=== PATIENT | female | born 2000 | race Caucasian/White ===

== ENCOUNTER 2025-09-25 04:14 | Emergency (ER) | payer OTHER ==
[~2025-09-25] VITALS: Ht 165.1 cm; Wt 59.1 kg
[2025-09-25 04:21] VITALS: TEMP 98.1
[2025-09-25] MEDS ORDERED: KETOROLAC TROMETHAMINE 30 MG/ML VIAL IVP ONE (04:30)
[2025-09-25] MEDS ORDERED: SODIUM CHLORIDE 0.9% 100 ML ONE (04:48)
[2025-09-25] MEDS ORDERED: IOHEXOL 300 MG/ML 100 ML VIAL ONE (04:48)
[2025-09-25 04:59] LABS: PLATELET COUNT (AUTO) 364 K/uL (150-450); RED BLOOD CELL COUNT(AUTO) 3.86 MIL/uL (4.00-5.20); RED CELL DISTRIBUTION WIDTH 12.9 % (11.5-14.5); WHITE BLOOD COUNT (AUTO) 7.0 K/uL (4.5-11.0)
[2025-09-25] MEDS: ONDANSETRON HCL 4 MG/2 ML VIAL IVP ONE (05:00)
[2025-09-25] MEDS: MAG HYDROX/ALUMINUM HYD/SIMETH 30 ML SUSPENSION UDCUP PO ONE (05:00)
[2025-09-25] MEDS: KETOROLAC TROMETHAMINE 15 MG/ML VIAL IVP ONE (05:00)
[2025-09-25] MEDS: FAMOTIDINE 20 MG/2 ML VIAL IVP ONE (05:00)
[2025-09-25] MEDS: SODIUM CHLORIDE 0.9% 1,000 ML IV ONE (05:01)
[2025-09-25 05:02] LABS: CALCIUM, TOTAL 9.3 mg/dL (8.8-10.5); CREATININE 0.74 mg/dL (0.60-1.30); GLOMERULAR FILTR. RATE CALC > 60 mL/min (>60); GLUCOSE,RANDOM 107 mg/dL (70-110); SODIUM SERUM 136 mmol/L (136-145); UREA NITROGEN, BLOOD 11 mg/dL (7-18)
[2025-09-25 05:13] LABS: ASPARTATE AMINOTRANSFERASE 21 U/L (15-37); HCG,QUANTITATIVE < 1 mIU/mL (0-6); TOTAL PROTEIN, SERUM 7.9 g/dL (6.4-8.2)
[2025-09-25 08:53] VITALS: BP 110/61; PULSE 56; RESP 20; O2SAT 100
== END 2025-09-25 09:23 | disposition home or self-care (01) ==
LOC: EMS 04:36
DX: R10.33 Periumbilical pain (principal); N89.8 Other specified noninflammatory disorders of vagina
CPT/HCPCS: 99285; 74177; 96374; 96375; 80048; 80076; 83690; 84702; 85025; 36415; J1885; J3490; J2405; J7050; Q9967